=== PATIENT | male | born 1985 | race Caucasian/White ===

== ENCOUNTER 2016-10-06 13:36 | Emergency (ER) | payer BC ==
[~2016-10-06] VITALS: Ht 175.3 cm; Wt 70.3 kg
--- NOTE | 2016-10-06 14:00 | NUR ---
BB SELF, SOB X 4 DAYS, HX OF ASHTMA USED ALBUTEROL NO RELIEF. AWAITING MD ORDER
[2016-10-06] MEDS ORDERED: ALBUTEROL FS 2.5 MG/3 ML VIAL.NEB ONE (14:29)
[2016-10-06] MEDS ORDERED: IPRATROPIUM NEB FS 0.5 MG/2.5 ML AMPUL.NEB ONE (14:29)
[2016-10-06] MEDS ORDERED: IPRATROPIUM NEB FS 0.5 MG/2.5 ML AMPUL.NEB NEB ONE (14:30)
[2016-10-06] MEDS ORDERED: ALBUTEROL FS 2.5 MG/3 ML VIAL.NEB NEB ONE (14:30)
[2016-10-06] MEDS ORDERED: predniSONE 20 MG TABLET PO ONE (14:30)
[2016-10-06] MEDS ORDERED: predniSONE 20 MG TABLET ONE (14:32)
--- NOTE | 2016-10-06 14:58 | NUR ---
LAST DIPPER AT BEDSIDE
--- NOTE | 2016-10-06 15:28 | NUR ---
Patient discharged to home in stable condition. Written and verbal after care instructions given. Patient verbalizes understanding of instruction.
[2016-10-06 15:29] VITALS: BP 122/75
== END 2016-10-06 15:29 | disposition home or self-care (01) ==
LOC: ER 13:38
DX: J45.901 Unspecified asthma with (acute) exacerbation (principal)
CPT/HCPCS: 71010; 94640; 99283; A4606; J7512; Z7610